=== PATIENT | female | born 1995 | race Caucasian/White ===

== ENCOUNTER 2016-06-08 20:54 | Emergency (ER) | payer SELFPAY ==
[~2016-06-08] VITALS: Ht 170.2 cm; Wt 111.1 kg
[~2016-06-08 20:54] MED LIST: ACHD5005 PO
[2016-06-08] MEDS ORDERED: AZITHROMYCIN 250 MG TAB (ZITHROMAX) PO STA (21:44)
[2016-06-08] MEDS ORDERED: DEXAMETHASONE PF 10 MG/ML (DECADRON) VIAL IM STA (21:44)
--- NOTE | 2016-06-08 21:51 | ED Cough/URI ---
General Chief Complaint: Cough/Cold/Flu Symptoms Stated Complaint: COUGH,VOMITING Source: patient Exam Limitations: no limitations History of Present Illness Time seen by provider: 21:37 Initial Comments Here with report of cough and upper respiratory congestion for the last 7-10 days. She occasionally will cough until she vomits but not always. She had a spell tonight and was sent home from work and needed to be evaluated to go back to work. No recent fevers. Patient has known history of high blood pressure when evaluated and usually normal when rechecking. She states her blood pressure will be high when we evaluate. Timing/Duration: week, getting worse Severity/Quality: moderate, productive cough Associated Symptoms: cough, earache, fever/chills, nasal congestion, nasal drainage, sore throat Allergies and Home Medications Allergies Coded Allergies: No Known Drug Allergies (Unverified , 07/16/12) Home Medications Hydrocodone Bit/Acetaminophen 1 Each Tablet #14 1 EACH PO Q6H Prescribed by: SEDA WICK on 07/16/122123 Constitutional: see HPINo chills, No fever EENTM: nose congestion throat pain Respiratory: coughNo short of breath, No wheezing Cardiovascular: no symptoms reportedNo chest pain Gastrointestinal: no symptoms reported Genitourinary: no symptoms reported Past Xdzmmdc-Dbjufw-Gmucgu Hx Patient Social History Alcohol Use: Denies Use Recreational Drug Use: No Smoking Status: Former Smoker Type Used: Cigarettes Recent Foreign Travel: No Contact w/Someone Who Travel: No Recent Hopitalizations: No Physical Abuse Screen: No Sexual Abuse: No Immunizations Up To Date Date of Influenza Vaccine: Mar 29, 2012 Seasonal Allergies Seasonal Allergies: No Surgeries HX Surgeries: No Respiratory Respiratory Disorders: Asthma Cardiovascular Hx Cardiac Disorders: No Neurological Hx Neurological Disorders: No Reproductive System Hx Reproductive Disorders: No Sexually Transmitted Disease: No Genitourinary Hx Genitourinary Disorders: No Gastrointestinal Hx Gastrointestinal Disorders: No Musculoskeletal Hx Musculoskeletal Disorders: No Endocrine Hx Endocrine Disorders: No HEENT HX ENT Disorders: No Cancer Hx Cancer: No Psychosocial Hx Psychiatric Problems: No Blood Transfusions Hx Blood Disorders: No Reviewed Nursing Assessment Reviewed/Agree w Nursing PMH: Yes Family Medical History Significant Family History: No Pertinent Family Hx Physical Exam Vital Signs Vital Sign - Last 12Hours 06/08/16 21:44 O2 Delivery Room Air Capillary Refill : General Appearance: WD/WN no apparent distress HEENT: PERRL/EOMI pharyngeal erythema other (moderate bilateral nasal congestion with clear rhinorrhea.) Neck: full range of motion supple Respiratory: lungs clear normal breath sounds Cardiovascular: regular rate, rhythm no murmur Gastrointestinal: non tender soft Neurologic/Psychiatric: alert oriented x 3 Skin: normal color warm/dry Progress/Results/Core Measures Results/Orders My Orders Orders-NEVIN BUCKLEY MD Decadron 10 Mg Im (06/08/16 21:44) Azithromycin Tablet (Zithromax Tablet) (06/08/16 21:44) Vital Signs/I&O Vital Sign - Last 12Hours 06/08/16 21:44 O2 Delivery Room Air Progress Note : Progress Note Seen and evaluated. Decadron 10 mg IM and azithromycin 500 mg by mouth. The pressure was high as expected. Patient will recheck blood pressures at work for the next several days and if it remains high, she will follow-up with her doctor. Discharged home with return precautions. Patient verbalize understanding instructions and agreement with plan. Departure Impression Impression: Primary Impression: Upper respiratory infection Qualified Code: J06.9 - Acute upper respiratory infection, unspecified Additional Impression: Bronchitis Disposition: HOME, SELF-CARE Condition: Improved Departure-Patient Inst. Decision time for Depature: 21:49 Referrals: NO,LOCAL PHYSICIAN (PCP/Family) Primary Care Physician Patient Instructions: Acute Bronchitis, Adult (DC), Viral Upper Respiratory Infection, Adult (DC) Add. Discharge Instructions: All discharge instructions reviewed with patient and/or family. Voiced understanding. Take medications as directed. Recheck your blood pressure for the next several days. If you have persistent high blood pressure greater than 140/90, you need to follow-up with your doctor for recheck and further evaluation and treatment of your blood pressure. Return for worse pain, fever, vomiting, weakness, breathing problems or other concerns as needed. You may use Afrin nasal spray or the generic, 12 hour relief, 2 sprays to each nostril twice daily for the next 3 days and then stop. Do not take for more than 3 days. Scripts Azithromycin 250 Mg [id number] Mg PO DAILY #4 TAB Prov:NEVIN BUCKLEY MD 06/08/16 NEVIN BUCKLEY MD Jun 08, 2016 21:51
[2016-06-08] MEDS ORDERED: AZIT250T5 PO (21:52)
[2016-06-08 22:01] VITALS: BP 192/108
== END 2016-06-08 22:01 | disposition home or self-care (01) ==
LOC: EDUNIT# 20:54 → ER 20:56
DX: J06.9 Acute upper respiratory infection, unspecified (principal); J40 Bronchitis, not specified as acute or chronic
CPT/HCPCS: 96372; 99283

== ENCOUNTER 2021-04-18 18:02 | Emergency (ER) | payer SELFPAY ==
[~2021-04-18] VITALS: Ht 167.7 cm; Wt 129.3 kg
[~2021-04-18 18:02] MED LIST changes: +AZIT250T12 PO
[2021-04-18 18:06] VITALS: BP 128/65
--- NOTE | 2021-04-18 18:08 | ED Lower Extremity ---
General Stated Complaint: FALL/RIGHT ANKLE PAIN Source: patient Exam Limitations: no limitations History of Present Illness Date Seen by Provider: Apr 18, 2021 Time Seen by Provider: 18:07 Initial Comments To ER with c/o fall off porch and subsequent right lateral ankle pain and abrasions to right tibia. no other injury. Last tetanus unknown. ambulatory and weight bearing on right leg. Onset: just prior to arrival Severity: moderate Pain/Injury Location: right ankle Method of Injury: twisted Modifying Factors: Improves With Movement Allergies and Home Medications Allergies Coded Allergies: No Known Drug Allergies (Unverified , 07/16/12) Patient Home Medication List Home Medication List Reviewed: Yes Azithromycin (Azithromycin) 250 Mg Tablet, 250 MG PO DAILY Prescribed by: NEVIN BUCKLEY on 06/08/162151 Hydrocodone Bit/Acetaminophen (Lortab 5 Mg Tablet) 1 Each Tablet, 1 EACH PO Q6H Prescribed by: SEDA WICK on 07/16/122123 Review of Systems Constitutional: see HPI EENTM: see HPI Respiratory: no symptoms reported Cardiovascular: no symptoms reported Genitourinary: no symptoms reported Musculoskeletal: see HPI Skin: no symptoms reported Psychiatric/Neurological: No Symptoms Reported Past Etqymrx-Yveqar-Ybtnuv Hx Seasonal Allergies Seasonal Allergies: No Past Medical History Asthma Reproductive Disorders: No Sexually Transmitted Disease: No Family Medical History No Pertinent Family Hx Physical Exam Vital Signs Vital Signs - First Documented 04/18/21 18:06 Temp 36.8 Pulse 120 Resp 20 B/P (MAP) 128/65 (86) Pulse Ox 97 O2 Delivery Room Air Capillary Refill : Height, Weight, BMI Height: 5'7" Weight: 245lbs. oz. [id number]; 38.37 BMI Method:Stated General Appearance: WD/WN, no apparent distress HEENT: PERRL/EOMI, normal ENT inspection Respiratory: no respiratory distress, no accessory muscle use Gastrointestinal: normal bowel sounds, non tender, soft Hips: bilateral hip non-tender, bilateral hip normal inspection, bilateral hip normal range of motion Legs: bilateral leg non-tender, bilateral leg normal inspection, bilateral leg normal range of motion; right leg other (2 small 1 cm abrasions right mid tibia. Swelling over the lateral malleolus. No open wound.) Knees: bilateral knee non-tender, bilateral knee normal inspection, bilateral knee normal range of motion Ankles: right ankle non-tender, right ankle normal inspection, right ankle normal range of motion; left ankle pain, left ankle soft tissue tenderness, left ankle swelling Feet: bilateral foot non-tender, bilateral foot normal inspection Neurologic/Psychiatric: alert, normal mood/affect, oriented x 3 Skin: normal color, warm/dry Progress/Results/Core Measures Results/Orders My Orders Orders - NORTH BURROWS APRN Ankle, Right, 3 Views (04/18/21 18:07) Dipht,Pertuss(Acell),Tet Adult (Boostrix (04/18/21 18:45) Vital Signs/I&O 04/18/21 18:06 Temp 36.8 Pulse 120 Resp 20 B/P (MAP) 128/65 (86) Pulse Ox 97 O2 Delivery Room Air Departure Communication (Admissions) I offered her crutches at discharge but she declined. Impression Primary Impression: Ankle sprain Disposition: HOME, SELF-CARE Condition: Stable Departure-Patient Inst. Decision time for Depature: 18:07 Referrals: LATOSHA JUSTIN APRN (PCP/Family) Primary Care Physician Patient Instructions: Ankle Sprain Add. Discharge Instructions: 1. Keep it compressed with an valeria wrap, elevate this ankle for 30 minutes 3-4 times a day. tylenol and motrin for pain. follow up with your doctor next week if you fail to improve. NORTH BURROWS APRN Apr 18, 2021 18:08
--- NOTE | 2021-04-18 18:39 | Diagnostic Imaging Report ---
INDICATION: 25-year-old female fell off a porch onto a gravel area. Presents with right ankle pain. COMPARISON: None. FINDINGS: Three views of the right ankle show no evidence of new or healing fractures, bony destruction or remodeling. The right ankle mortise is preserved. IMPRESSION: No fracture or subluxation with an intact right ankle mortise. Dictated by: Dictated on workstation # [id number]
[2021-04-18] MEDS ORDERED: TETANUS,DIPTH,PERTUSS P/F (BOOSTRIX) 0.5 ML VIAL IM ONE (18:45)
== END 2021-04-18 18:50 | disposition home or self-care (01) ==
LOC: EDUNIT# 18:02 → ER 18:04
DX: S93.401A Sprain of unspecified ligament of right ankle, initial encounter (principal); J45.909 Unspecified asthma, uncomplicated; Z23 Encounter for immunization; W17.89XA Other fall from one level to another, initial encounter
CPT/HCPCS: 73610; 90715